=== PATIENT | male | born 1980 ===

== ENCOUNTER 2019-06-13 11:15 | Emergency (ER) | payer SELFPAY ==
[2019-06-13 11:34] VITALS: BP 121/68
--- NOTE | 2019-06-13 11:52 | UC ---
Back Pain HPI - HPI Summary HPI Summary: 38 yo with previous hx of lumbar degenerative disease, with 5 day history of pain in the bilateral gluteal area and hip area. Pain is described and achey and feels like a jignesh horse, and intensifies with both urine and stool passage, although he has has not had any fecal or urinary incontinence, and has stools are normal. No precipitating injury or increase in physical activity. No hx of renal stones. Ibuprofen 800mg was not helpful, but he has taken only one dose. Has not tried ice or heat. 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 - Risk Factors AAA Risk Factors: Negative TAD Risk Factors: Negative Cauda Equina Risk Factors: Negative Epidural Abscess Risk Factors: Negative - Allergies/Home Medications Allergies/Adverse Reactions: Allergies Allergy/AdvReac Type Severity Reaction Status Date / Time No Known Allergies Allergy Verified 06/13/19 11:28 Home Medications: Home Medications NK [No Home Medications Reported] 06/13/19 [History Confirmed 06/13/19] PMH/Surg Hx/FS Hx/Imm Hx Previously Healthy: Yes - Surgical History Surgical History: Yes Surgery Procedure, Year, and Place: left knee-2000 - Family History Known Family History: Positive: Other - father of lung cancer; mother has had renal stones. - Social History Occupation: Employed Full-time Lives: With Family Alcohol Use: None Substance Use Type: None Smoking Status (MU): Never Smoked Tobacco Review of Systems All Other Systems Reviewed And Are Negative: Yes Constitutional: Positive: Negative Skin: Positive: Negative Eyes: Positive: Negative ENT: Positive: Negative Respiratory: Positive: Shortness Of Breath - yesterday felt a bit out of breath in a way that seemed related to the pain, but he cannot describe the relationship Gastrointestinal: Negative: Abdominal Pain, Vomiting, Diarrhea Genitourinary: Positive: Negative, Other - for about 2 years he has had occasional difficulty passing a urine stream.. Negative: Dysuria, Hematuria, Frequency, Urgency Motor: Positive: Other - pain intensifies with a squat. Neurovascular: Positive: Negative Musculoskeletal: Positive: Myalgia Physical Exam Appearance: Well-Appearing, Pain Distress - mild Vital Signs: Initial Vital Signs Temp 97.7 F 06/13/19 11:29 Pulse 60 06/13/19 11:29 Resp 13 06/13/19 11:29 BP 121/68 06/13/19 11:29 Pulse Ox 99 06/13/19 11:29 ENT: Positive: Pharynx normal Respiratory: Positive: Lungs clear, Normal breath sounds Cardiovascular: Positive: RRR, No Murmur Abdomen Description: Positive: Nontender, No Organomegaly, Soft. Negative: CVA Tenderness (R), CVA Tenderness (L) Musculoskeletal Exam: Other - no central spinal tenderness. Musculoskeletal: Positive: ROM Intact - full rom in lumbar spine with mild discomfort in bilateral hamstrings with forward bending. Full painfree rom in both hips although mildly stiff. SLR to 80 degrees bilaterally, tight hamstrings. Neurological Exam: Normal Neurological: Positive: Alert, Muscle Tone Normal Psychological Exam: Normal Skin Exam: Normal Diagnostics - Laboratory Lab Results: UA negative Back Pain Course/Dx - Course Course Of Treatment: 38 yo with gluteal pain and hanstring strain. With discussion, it turns out that he does have his 3 yo granddaughter playing with him a lot, often lets her ride on his back. - Differential Dx/Diagnosis Differential Diagnosis/HQI/PQRI: Herniated Disc, Strain, Sprain Provider Diagnosis: Muscle strain of gluteal region Discharge ED - Sign-Out/Discharge Documenting (check all that apply): Patient Departure All imaging exams completed and their final reports reviewed: No Studies - Discharge Plan Condition: Good Disposition: HOME Patient Education Materials: Muscle Strain (ED) Referrals: No Primary Care Phys,NOPCP [Primary Care Provider] - Additional Instructions: As discussed, the findings which you have suggest tight gluteal and hamstring muscles. Do stretches, and for the next 2 to 3 days use ibuprofen 800mg three times daily. If pain persists, follow up with sports medicine or with your primary physican. - Billing Disposition and Condition Condition: GOOD Disposition: Home
== END 2019-06-13 12:50 | disposition home or self-care (01) ==
LOC: UCCORT 11:15
DX: S39.013A Strain of muscle, fascia and tendon of pelvis, initial encounter (principal); R06.02 Shortness of breath; X58.XXXA Exposure to other specified factors, initial encounter; Y92.9 Unspecified place or not applicable
CPT/HCPCS: 81003; 99211; G0463